=== PATIENT | female | born 1950 ===

== ENCOUNTER 2016-08-17 09:23 | Day surgery (SDC) | payer BC ==
[~2016-08-17] VITALS: Ht 167.6 cm; Wt 95.5 kg
[2016-08-17] MEDS ORDERED: LISINOPRIL-HCTZ1 T13 PO (10:12)
[2016-08-17] MEDS ORDERED: GLUCOPHAGE500 MG PO (10:12)
[2016-08-17] MEDS ORDERED: PAXIL20 MG PO (10:13)
[2016-08-17] MEDS ORDERED: PROTONIX40 MG PO (10:13)
[2016-08-17] MEDS ORDERED: XIFAXAN550 MG PO (10:15)
[2016-08-17] MEDS ORDERED: ENULOSE10 G/15 ML PO (10:15)
[2016-08-17] MEDS ORDERED: INDERAL10 MG PO (10:16)
[2016-08-17] MEDS ORDERED: TRAZODONE HCL50 MG PO (10:18)
[2016-08-17 10:23] LABS: HEMATOCRIT 36.4 % (36.0-48.0); MCH 31.9 pg (26.0-34.0); MCV 96.8 fL (80.0-100.0); MEAN PLATELET VOLUME 11.3 fL (7.4-10.4); RBC 3.76 10x6/uL (4.00-5.40); RDW 14.7 % (11.5-14.5); WBC 3.4 10x3/uL (4.8-10.8)
[2016-08-17 10:27] VITALS: BP 151/54; Ht 167.6 cm; Wt 95.5 kg
[2016-08-17 10:33] LABS: CALC OSMOLALITY 286 mosm/kg (275-300); CALCIUM 8.9 mg/dL (8.5-10.1); CARBON DIOXIDE 29.8 mmol/L (21.0-32.0); CHLORIDE - SERUM 107 mmol/L (98-107); CREATININE - SERUM 0.8 mg/dL (0.6-1.3); GLUCOSE 114 mg/dL (74-106); POTASSIUM - SERUM 3.5 mmol/L (3.5-5.1); SODIUM 144 mmol/L (136-145); UREA NITROGEN 9 mg/dL (7-18); eGFR NON AFRICAN AMERICAN 77 mL/min (90-120)
[2016-08-17 11:21] LABS: APTT 32.7 SECONDS (22.8-39.4); INR 1.46 (0.85-1.17); PROTIME 17.7 SECONDS (11.6-15.0)
[2016-08-17 11:28] LABS: ALBUMIN 2.2 g/dL (3.4-5.0); ALKALINE PHOSPHATASE 173 U/L (46-116); ALT (SGPT) 61 U/L (10-68); BILIRUBIN - TOTAL 1.67 mg/dL (0.2-1.3)
--- NOTE | 2016-08-17 14:34 | NUR ---
1425--IV DC'D, PT UP TO DRESS AT THIS TIME. YU SHAH
--- NOTE | 2016-08-17 14:45 | NUR ---
1443--DISCHARGE INSTRUCTIONS GIVEN, PT VERBALIZES UNDERSTANDING. PT OFF UNIT VIA BRITTON. YU SHAH
--- NOTE | 2016-08-22 13:02 | OP ---
PATIENT NAME: EDUARDO MORENO MEDICAL RECORD: [id number] :52 LOCATION:[facility] ADMISSION DATE: SURGEON: JOO VAUGHAN DO DATE OF OPERATION: 08/17/2016 PROCEDURE: EGD. SCOPE: Olympus video gastroscope. MEDICATIONS: Propofol 120 mg per IV per anesthesia. INDICATIONS FOR PROCEDURE: Reevaluation of multiple gastric ulcers and gastric varices status post TIPS placement. FINDINGS: Informed consent was given. The patient was made comfortable with the above medication. After reaching an adequate level of sedation by slow IV push, the patient was placed on her left side. The endoscope was then advanced under direct visualization through the mouth to the second portion of the duodenum. The upper, middle, and distal thirds of the esophagus appeared normal. There was no evidence of obvious inflammation at the GE junction. The scope was advanced into the stomach and retroflexed to view the cardia which appeared normal. The fundus revealed no large gastric ulcers. Within the body of the stomach, there was obvious portal hypertensive gastropathy present diffusely. This was of mild severity. The scope was advanced into the duodenum, which showed a normal bulb and second portion of duodenum. Scope was then withdrawn from the patient. The patient tolerated the procedure well and there were no complications. IMPRESSION: Portal hypertensive gastropathy. PLAN AND RECOMMENDATIONS: 1. Discharge home when recovery parameters are met. 2. Continue current diet and current medications. 3. Follow up in the GI clinic as previously scheduled for further surveillance of liver disease. TRANSINT:[id number] Voice Confirmation ID: [id number] DOCUMENT ID: [id number] JOO VAUGHAN DO at 1302 CC: [id number] DICTATION DATE: 08/17/16 1322 [employer] JOINTER: 08/17/162021 [facility] 08/17/16 [facility] [address] [place] [address]
== END 2016-08-17 14:43 | disposition home or self-care (01) ==
LOC: D.OPS 09:23
PROVIDERS: Anesthesiology
DX: I86.4 Gastric varices (principal); K76.6 Portal hypertension; I10 Essential (primary) hypertension; E11.9 Type 2 diabetes mellitus without complications; K21.9 Gastro-esophageal reflux disease without esophagitis; Z87.891 Personal history of nicotine dependence; K31.89 Other diseases of stomach and duodenum

== ENCOUNTER 2016-09-15 10:59 | Day surgery (SDC) | payer BC ==
[~2016-09-15] VITALS: Ht 167.6 cm; Wt 90.9 kg
--- NOTE | ~2016-09-15 | OP ---
PATIENT NAME: EDUARDO MORENO MEDICAL RECORD: [id number] :52 LOCATION:[facility] ADMISSION DATE: SURGEON: JOO VAUGHAN DO DATE OF OPERATION: 09/15/2016 PROCEDURES: Colonoscopy with hot forceps polypectomy and hemostasis with endoclipping. INDICATIONS FOR PROCEDURE: Screening colonoscopy. SCOPE: [email or web address] video pediatric colonoscope. MEDICATIONS: Propofol 580 mg IV per anesthesia. ESTIMATED BLOOD LOSS: Less than 3 mL. WITHDRAWAL TIME: Greater than 15 minutes. COMPLICATIONS: None. FINDINGS: Informed consent was given. The patient was made comfortable with the above medication. After reaching an adequate level of sedation by slow IV push, the patient was placed on her left side. A digital rectal examination was performed and was normal. The endoscope was then advanced under direct visualization through the anus to the cecum, evidenced by the appendiceal orifice and ileocecal valve. The scope was then slowly withdrawn and the mucosa was carefully examined. There were 2 polyps found on this examination. Both measured approximately 3-4 mm in size and were benign-appearing. Both were removed with hot forceps. These were both located in the transverse colon. A second polyp removed had some bleeding noted afterwards. Simple cauterization with the forceps was attempted, but the bleeding continued, so a single endoclip was placed successfully for hemostasis. Retroflexion was performed in the rectum. There were small nonbleeding internal hemorrhoids present in the rectum. The scope was then withdrawn from the patient. The patient tolerated the procedure well and there were no complications. IMPRESSION: 1. Two benign-appearing sessile polyps as described above in the transverse colon, both removed with hot forceps. 2. Endoclipping for hemostasis on the second polyp site. 3. Small nonbleeding internal hemorrhoids. PLAN AND RECOMMENDATIONS: 1. Discharge home when recovery parameters are met. 2. Continue current diet. 3. Continue current medications. 4. Repeat colonoscopy will be dependent on results of polyps removed. 5. Maintain regular health maintenance examinations every 6 months regarding the liver disease. TRANSINT:[id number] Voice Confirmation ID: [id number] DOCUMENT ID: [id number] OPERATIVE REPORT [id number] EDUARDO MORENOJOO BRUCE DO CC: [id number] DICTATION DATE: 09/15/16 1305 DATA REPORTING ANALYST: 09/15/16 1527 [facility] 09/15/16 [facility] [address] [place] [address]
[~2016-09-15 10:59] MED LIST: ENULOSE10 G/15 ML PO; GLUCOPHAGE500 MG PO; INDERAL10 MG PO; LISINOPRIL-HCTZ1 T13 PO; PAXIL20 MG PO; PROTONIX40 MG PO; TRAZODONE HCL50 MG PO; XIFAXAN550 MG PO
[2016-09-15 11:55] VITALS: BP 144/64; Ht 167.6 cm; Wt 90.9 kg
[2016-09-15 12:25] LABS: BASOPHILS 0.5 % (0-2); EOSINOPHILS 9.7 % (0-7); HEMATOCRIT 38.5 % (36.0-48.0); HEMOGLOBIN 12.9 g/dL (12-16); LYMPHOCYTES 38.2 % (15-50); MCH 32.1 pg (26.0-34.0); MCHC 33.5 g/dL (31.0-37.0); MCV 95.8 fL (80.0-100.0); MEAN PLATELET VOLUME 12.5 fL (7.4-10.4); MONOCYTES 7.5 % (2-11); NEUTROPHILS 44.1 % (40-80); PLATELET COUNT 125 10x3/uL (130-400); RBC 4.02 10x6/uL (4.00-5.40); RDW 14.2 % (11.5-14.5); WBC 3.7 10x3/uL (4.8-10.8)
[2016-09-15 12:36] LABS: CALC OSMOLALITY 285 mosm/kg (275-300); CALCIUM 9.2 mg/dL (8.5-10.1); CARBON DIOXIDE 27.2 mmol/L (21.0-32.0); CHLORIDE - SERUM 108 mmol/L (98-107); CREATININE - SERUM 0.7 mg/dL (0.6-1.3); GLUCOSE 109 mg/dL (74-106); POTASSIUM - SERUM 3.6 mmol/L (3.5-5.1); SODIUM 143 mmol/L (136-145); UREA NITROGEN 13 mg/dL (7-18); eGFR NON AFRICAN AMERICAN 90 mL/min (90-120)
[2016-09-15 12:38] LABS: APTT 32.1 SECONDS (22.8-39.4); INR 1.3 (0.85-1.17)
--- NOTE | 2016-09-15 15:11 | NUR ---
1400--IV DC'D, PT UP TO DRESS AT THIS TIME. YU SHAH 9720--DISCHARGE INSTRUCTIONS GIVEN, PT VERBALIZES UNDERSTANDING. PT OFF UNIT VIA WC. YU SHAH
== END 2016-09-15 14:20 | disposition home or self-care (01) ==
LOC: D.OPS 10:59
PROVIDERS: Anesthesiology; Internal Medicine Gastroenterology
DX: Z12.11 Encounter for screening for malignant neoplasm of colon (principal); K63.5 Polyp of colon; K64.8 Other hemorrhoids

== ENCOUNTER 2017-09-04 11:35 | Day surgery (SDC) | payer BC ==
[~2017-09-04] VITALS: Ht 167.6 cm; Wt 98.2 kg
--- NOTE | ~2017-09-04 | OP ---
PATIENT NAME: EDUARDO MORENO MEDICAL RECORD: [id number] :52 LOCATION:[facility] ADMISSION DATE: SURGEON: JOO VAUGHAN DO DATE OF OPERATION: 09/04/2017 PROCEDURE: EGD with biopsies. INDICATIONS FOR PROCEDURE: History of gastric varices, hepatic encephalopathy, and unspecified cirrhosis of the liver. Her last upper endoscopy was performed on 08/17/2016. SCOPE: Olympus video gastroscope. MEDICATIONS: Propofol 130 mg IV per anesthesia. ESTIMATED BLOOD LOSS: Minimal. COMPLICATIONS: None. FINDINGS: Informed consent was given. The patient was made comfortable with the above medication. After reaching an adequate level of sedation by slow IV push, the patient was placed on her left side. The endoscope was advanced under direct visualization through the mouth to the second portion of the duodenum. The upper, middle, and lower thirds of the esophagus appeared normal. There were no findings consistent with esophageal varices. At the GE junction, there was minimal evidence of LA class A reflux-induced esophagitis. The endoscope was advanced beyond the GE junction into the stomach and retroflexed to view the cardia. The cardia appeared normal, but there was evidence of gastric varices, which have been seen in the past, but were not present on the last examination in July of 2016. There were no bleeding stigmata associated with this area of varices. In the gastric body, there was a single and small angioectasia present without bleeding stigmata. Throughout the entire stomach, there was some erythema and granularity as well as congestion as consistent with portal hypertensive gastropathy. Random biopsies were taken to submit for histology and to rule out H. pylori. The endoscope was advanced into the duodenum where the bulb, first portion, and second portion of the duodenum appeared normal. The endoscope was then withdrawn from the patient. The patient tolerated the procedure well and there were no complications. IMPRESSION: 1. Normal esophagus without evidence of varices. 2. LA class A reflux-induced esophagitis. 3. Gastritis and portal hypertensive gastropathy. 4. Isolated gastric varices. 5. A single gastric angioectasia without bleeding stigmata. PLAN AND RECOMMENDATIONS: 1. Discharge home when recovery parameters are met. 2. Follow up biopsy specimen results. 3. Continue current diet and medications. 4. Repeat EGD in 1 year for further surveillance of varices and continue q.6 months office visits and imaging of the liver. TRANSINT:[id number] Voice Confirmation ID: [id number] DOCUMENT ID: [id number] OPERATIVE REPORT [id number] EDUARDO MORENO,JOO Diana DO at 1651 CC: [id number] DICTATION DATE: 09/04/17 1341 REGISTERED MIDWIFE: 09/04/17 1357 [facility] 09/04/[address] [address]
[2017-09-04 12:12] VITALS: BP 150/61; Ht 167.6 cm; Wt 98.2 kg
[2017-09-04 12:21] LABS: HEMATOCRIT 35.8 % (36.0-48.0); HEMOGLOBIN 12.2 g/dL (12-16); MCHC 34.1 g/dL (31.0-37.0); MEAN PLATELET VOLUME 11.6 fL (7.4-10.4); RBC 3.81 10x6/uL (4.00-5.40); RDW 14.2 % (11.5-14.5); WBC 3.6 10x3/uL (4.8-10.8)
[2017-09-04 12:22] LABS: PLATELET COUNT 94 10x3/uL (130-400)
[2017-09-04 12:31] LABS: APTT 29.6 SECONDS (22.8-39.4); INR 1.27 (0.85-1.17); PROTIME 15.4 SECONDS (11.6-15.0)
[2017-09-04 12:38] LABS: ALBUMIN 2.4 g/dL (3.4-5.0); ALKALINE PHOSPHATASE 78 U/L (46-116); ALT (SGPT) 50 U/L (10-68); CALC OSMOLALITY 287 mosm/kg (275-300); CALCIUM 9.2 mg/dL (8.5-10.1); CARBON DIOXIDE 25.5 mmol/L (21.0-32.0); CHLORIDE - SERUM 108 mmol/L (98-107); CREATININE - SERUM 0.8 mg/dL (0.6-1.3); GLUCOSE 134 mg/dL (74-106); POTASSIUM - SERUM 4.1 mmol/L (3.5-5.1); PROTEIN - SERUM 5.5 g/dL (6.4-8.2); SODIUM 143 mmol/L (136-145); UREA NITROGEN 15 mg/dL (7-18); eGFR NON AFRICAN AMERICAN 76 mL/min (90-120)
[2017-09-04 12:43] LABS: PLATELET ESTIMATE DECREASED
== END 2017-09-04 14:35 | disposition home or self-care (01) ==
LOC: D.OPS 11:35
PROVIDERS: Anesthesiology
DX: I86.4 Gastric varices (principal); I10 Essential (primary) hypertension; E11.9 Type 2 diabetes mellitus without complications; M19.90 Unspecified osteoarthritis, unspecified site; K72.90 Hepatic failure, unspecified without coma; K21.0 Gastro-esophageal reflux disease with esophagitis; K76.6 Portal hypertension; K31.89 Other diseases of stomach and duodenum; Z01.812 Encounter for preprocedural laboratory examination

== ENCOUNTER 2019-02-25 11:45 | Day surgery (SDC) | payer MEDICARE, OTHER ==
[~2019-02-25] VITALS: Ht 167.6 cm; Wt 89.5 kg
[2019-02-25 12:42] LABS: HEMATOCRIT 34.3 % (36.0-48.0); HEMOGLOBIN 11.1 g/dL (12-16); MCH 31.7 pg (26.0-34.0); MCHC 32.4 g/dL (31.0-37.0); MEAN PLATELET VOLUME 11.4 fL (7.4-10.4); RBC 3.5 10x6/uL (4.00-5.40); RDW 15.8 % (11.5-14.5); WBC 2.7 10x3/uL (4.8-10.8)
[2019-02-25 12:43] LABS: ALKALINE PHOSPHATASE 103 U/L (46-116); ALT (SGPT) 35 U/L (10-68); BILIRUBIN - TOTAL 2.85 mg/dL (0.2-1.3); CALC OSMOLALITY 289 mosm/kg (275-300); CALCIUM 8.1 mg/dL (8.5-10.1); CARBON DIOXIDE 27.6 mmol/L (21.0-32.0); CHLORIDE - SERUM 111 mmol/L (98-107); CREATININE - SERUM 0.8 mg/dL (0.6-1.3); GLUCOSE 103 mg/dL (74-106); POTASSIUM - SERUM 3.6 mmol/L (3.5-5.1); PROTEIN - SERUM 5.5 g/dL (6.4-8.2); SODIUM 145 mmol/L (136-145); UREA NITROGEN 15 mg/dL (7-18); eGFR NON AFRICAN AMERICAN 76 mL/min (90-120)
[2019-02-25 12:46] LABS: INR 1.72 (0.85-1.17); PROTIME 19.6 SECONDS (11.6-15.0)
[2019-02-25 13:01] LABS: APTT 25.7 SECONDS (22.8-39.4)
[2019-02-25] MEDS ORDERED: PROZAC20 MG PO (13:05)
[2019-02-25] MEDS ORDERED: HYDRALAZINE HCL25 MG PO (13:06)
[2019-02-25] MEDS ORDERED: LASIX20 MG PO (13:07)
[2019-02-25 13:13] VITALS: BP 119/47; Ht 167.6 cm; Wt 89.5 kg
--- NOTE | 2019-02-25 16:30 | NUR ---
DC INSTRUCTIONS GIVEN TO PT/FAMILY. STATE UNDERSTANDING. DC'D IV CATH FULLY INTACT.
--- NOTE | 2019-02-25 16:39 | NUR ---
PT LEFT UNIT VIA WC AT 5740
--- NOTE | 2019-03-06 07:36 | OP ---
PATIENT NAME: EDUARDO MORENO MEDICAL RECORD: [id number] :52 [facility] DATE: SURGEON: JOO VAUGHAN DO DATE OF OPERATION: 02/25/2019 PROCEDURE: EGD with biopsies. INDICATIONS FOR PROCEDURE: Gastric varices, hepatic encephalopathy, hyperammonemia, abdominal tenderness in a generalized pattern, nausea and vomiting, cirrhosis. The patient's last upper endoscopy was 09/04/2017. SCOPE: Olympus video gastroscope. MEDICATIONS: Propofol 120 mg IV per anesthesia. ESTIMATED BLOOD LOSS: Minimal. COMPLICATIONS: None. FINDINGS: Informed consent was given. The patient was made comfortable with the above medication. After reaching an adequate level of sedation by slow IV push, the patient was placed on her left side. The endoscope was advanced under direct visualization through the mouth to the second portion of the duodenum with ease. The entire esophagus appeared normal without evidence of any esophageal varices. At the GE junction, there were minor changes consistent with LA class A reflux-induced esophagitis. The endoscope was advanced beyond the GE junction in the stomach and retroflexed view of the cardia, where a patulous GE junction was visualized. The previously identified isolated gastric varices were not present on today's examination and there did not appear to be any gastric varices in the fundus. The mucosa of the entire stomach had a somewhat nodular appearance as well as some erythema and friability. Some of this could be the result of portal hypertensive gastropathy. Random cold forceps biopsies were taken from the antrum and incisura to submit for histopathology and to rule out the presence of H. pylori. The endoscope was advanced beyond the pylorus into the duodenum, which appeared normal down to the second portion. The endoscope was then withdrawn from the patient. The patient tolerated the procedure well and there were no complications. IMPRESSION: 1. Normal esophagus without evidence of varices and regression of previously identified gastric varices, which were not seen on today's examination. 2. LA class A reflux-induced esophagitis. 3. Mild portal hypertensive gastropathy and a nodular-appearing gastritis. Biopsies taken. PLAN AND RECOMMENDATIONS: 1. Discharge home when recovery parameters are met. 2. Follow up with the biopsy specimen results. 3. GERD diet and reflux precautions. 4. Continue current medications. 5. Follow up in GI clinic as scheduled. 6. Repeat EGD in 1-2 years' time for continued surveillance of esophageal and OPERATIVE REPORT [id number] EDUARDO MORENO gastric varices. TRANSINT:[id number] Voice Confirmation ID: [id number] DOCUMENT ID: [id number] JOO VAUGHAN DO at 0736 CC: [id number] DICTATION DATE: 02/25/19 1559 [employer] FIREMAN: 02/25/192131 [facility] 02/25/19 [place] [id number] [place] [id number]
== END 2019-02-25 16:41 | disposition home or self-care (01) ==
LOC: D.OPS 11:45
PROVIDERS: Anesthesiology; ATTEND Internal Medicine Gastroenterology
DX: I86.4 Gastric varices (principal); K72.90 Hepatic failure, unspecified without coma; K74.60 Unspecified cirrhosis of liver; K76.6 Portal hypertension; K31.89 Other diseases of stomach and duodenum; K21.0 Gastro-esophageal reflux disease with esophagitis; K29.70 Gastritis, unspecified, without bleeding

== ENCOUNTER → 2019-07-10 13:41 | Outpatient (CLI) | payer MEDICARE, OTHER ==
[2019-02-25 13:13] VITALS: BMI 31.8
[~2019-07-10 13:41] MED LIST changes: +HYDRALAZINE HCL25 MG PO; +LASIX20 MG PO; +PROZAC20 MG PO
[2019-07-10 14:45] LABS: BASOPHILS 0.6 % (0-2); EOSINOPHILS 3.8 % (0-7); HEMATOCRIT 32.5 % (36.0-48.0); HEMOGLOBIN 10.8 g/dL (12-16); IMMATURE GRANULOCYTES 0.3 % (0-5); LYMPHOCYTES 29.4 % (15-50); MCHC 33.2 g/dL (31.0-37.0); MCV 96.4 fL (80.0-100.0); MEAN PLATELET VOLUME 10.3 fL (7.4-10.4); MONOCYTES 8.4 % (2-11); NEUTROPHILS 57.5 % (40-80); RBC 3.37 10x6/uL (4.00-5.40); RDW 15.2 % (11.5-14.5); WBC 3.4 10x3/uL (4.8-10.8)
[2019-07-10 14:51] LABS: INR 1.44 (0.85-1.17); PROTIME 17.4 SECONDS (11.6-15.0)
[2019-07-10 14:54] LABS: ALBUMIN 1.9 g/dL (3.4-5.0); ANION GAP 9.7 mmol/L (8-16); BILIRUBIN - DIRECT 1.09 mg/dL (0.00-0.30); BILIRUBIN - INDIRECT 1.41 mg/dL (0.00-1.00); BILIRUBIN - TOTAL 2.5 mg/dL (0.2-1.3); CALCIUM 8.8 mg/dL (8.5-10.1); CARBON DIOXIDE 25.5 mmol/L (21.0-32.0); CREATININE - SERUM 1.1 mg/dL (0.6-1.3); PLATELET COUNT 131 10x3/uL (130-400); POTASSIUM - SERUM 4.2 mmol/L (3.5-5.1); PROTEIN - SERUM 5.6 g/dL (6.4-8.2)
== END | disposition home or self-care (01) ==
LOC: D.US 09:00 → D.LAB 09:30 → D.US 13:30
PROVIDERS: ATTEND Internal Medicine Gastroenterology
DX: K74.60 Unspecified cirrhosis of liver (principal)